=== PATIENT | male | born 1955 | race Caucasian/White ===

== ENCOUNTER → 2024-06-05 | Outpatient (CLI) | payer OTHER, SELFPAY ==
--- NOTE | 2024-06-05 14:20 | XR_ITS ---
Examination: Bone densitometry Date and time of exam:June 05, 2024 1430 hours INDICATIONS: 69-year-old male with diagnosis age related osteoporosis Technique: Lumbar spine and hip total bone mineralization values of an calculated. Peak reference and age match control results have been displayed. Findings: Lumbar spine total bone mineralization is1.435 gm/cm2. This is 3.1 standard deviations above peak reference. This is 3.9 standard deviations above age-matched controls. Hip total bone mineralization is 0.987 gm/cm2 This is 0.3 standard deviations below peak reference. This is 0.3 standard deviations above age-matched controls Impression: There is normal mineralization based on lumbar spine measurements. There is osteopenia based on hip measurements
== END | disposition home or self-care (01) ==
LOC: CDIM 14:12
PROVIDERS: PCP Family Medicine; Referring Provider Family Medicine; Visit Provider Family Medicine
DX: M85.80 Other specified disorders of bone density and structure, unspecified site (principal)
CPT/HCPCS: 77080

== ENCOUNTER → 2024-09-29 | Outpatient (CLI) | payer OTHER, SELFPAY ==
[2024-09-29 11:43] LABS: Collection Type, Urine Clean Catch
[2024-09-29 12:18] LABS: Basophils % (Auto) 1 % (0-2.5); Eosinophils # (Auto) 0.2 Thou/mm3 (0.0-0.5); Eosinophils % (Auto) 3 % (0-10); Hematocrit 36.5 % (41.0-53.0); Hemoglobin 12.1 g/dL (13.5-16.0); Immature Granulocytes % (Auto) 0 % (0-0); Immature Granulocytes Auto 0.01 Thou/mm3 (0.00-0.00); Lymphocytes # (Auto) 1.2 Thou/mm3 (1.0-4.8); Lymphocytes % (Auto) 26 % (10-50); Mean Corpuscular HGB Conc 33.2 g/dl (31.0-37.0); Mean Corpuscular Hemoglobin 28.1 pg (25.0-35.0); Mean Corpuscular Volume 85 fL (80-100); Monocytes # (Auto) 0.5 Thou/mm3 (0.0-0.8); Monocytes % (Auto) 12 % (0-12); Neutrophils # (Auto) 2.6 Thou/mm3 (1.8-7.7); Neutrophils % (Auto) 58 % (37-80); Nucleated Red Blood Cell % 0 /100 WBC (0); Platelet Count 193 Thou/mm3 (140-440); RDW Standard Deviation 45.8 fL (35.1-43.9); White Blood Count 4.5 Thou/mm3 (3.8-10.6)
[2024-09-29 12:22] LABS: Cardiac Risk Estimate 2.1 RATIO (4.0-6.7); Cholesterol 179 mg/dL (132-200); HDL Cholesterol 85 mg/dL (40-60); LDL Cholesterol,Calculated 72 mg/dL (0-130); Thyroid Stimulating Hormone 1.96 uIU/mL (0.55-4.78); Triglycerides 109 mg/dL (30-150); Uric Acid 6.6 mg/dL (3.7-9.2)
[2024-09-29 12:35] LABS: Bilirubin,Urine Negative (Negative); Blood,Urine Negative (Negative); Clarity,Urine Clear (Clear/Hazy); Color,Urine Lt-Yellow (Lt Yel-Yel); Glucose, Urine Negative (Negative); Ketones,Urine Negative (Negative); Leukocyte Esterase,Urine Positive (Negative); Nitrite,Urine Negative (Negative); PH,Urine 5.5 (5.0-7.0); Protein,Urine Negative (Neg - Trace); RBC,Urine 1 /hpf (0-3); Specific Gravity,Urine 1.017 (1.001-1.035); Squamous Epithelial Cell,Urine 1 /hpf (0-5); Urobilinogen,Urine Negative mg/dL (0.0-1.0); WBC,Urine 3 /hpf (0-5)
[2024-09-29 12:38] LABS: Sperm,Urine Present
[2024-09-29 12:49] LABS: Glucose Estimated Average 114 mg/dL (80-131); Hemoglobin A1C 5.6 % Hgb (4.8-6.0)
== END | disposition home or self-care (01) ==
PROVIDERS: PCP Family Medicine; Referring Provider Family Medicine; Visit Provider Family Medicine
DX: E66.9 Obesity, unspecified (principal); Z68.35 Body mass index [BMI] 35.0-35.9, adult
CPT/HCPCS: 36415; 80061; 81001; 83036; 84443; 84550; 85025

== ENCOUNTER 2025-02-23 22:04 | Emergency (ER) | payer OTHER, SELFPAY ==
[2025-02-23 22:13] VITALS: BP 143/75; PULSE 65; RESP 18; TEMP 36.5; O2SAT 97
--- NOTE | 2025-02-23 22:56 | XR_ITS ---
Examination: Thoracic spine 3 views TECHNIQUE: AP lateral, lateral operative cervical spine 3 views Date and time: 18/11/2024 11:21 PM INDICATIONS: Back pain today. FINDINGS: Kyphosis dorsal spine secondary to chronic wedging of a lower thoracic vertebral body which appears to be T12 No acute fracture Jrya-[id number] diffuse thoracic degenerative disc disease IMPRESSION: Severe kyphosis thoracolumbar spine
--- NOTE | 2025-02-23 22:56 | XR_ITS ---
Examination: PA chest single view TECHNIQUE: Upright PA chest single view Date and time: February 23, 2025 at 11:25 PM, comparison September 23, 2020 INDICATIONS: Chest pain and shortness of breath today. FINDINGS: Early left perihilar left basilar pneumonia. Normal heart size Osseous structures are intact IMPRESSION: Early left perihilar left basilar pneumonia
--- NOTE | 2025-02-23 22:58 | PD.EDRME ---
Rapid Medical Screening Exam RME Arrival date/time: 02/23/25 22:04 This is a case of 69-year-old male who came in in the emergency room due to chest pain shortness of breath and back pain today worsening of the symptoms this patient decided to sought consult here in the emergency room no palpitation Chief Complaint: Chest Pain Time Seen by Provider: 02/23/25 22:54 Vital signs: Vital Signs Temperature 97.7 F 02/23/25 22:13 Pulse Rate 65 02/23/25 22:13 Respiratory Rate 18 02/23/25 22:13 Blood Pressure 143/75 H 02/23/25 22:13 Pulse Oximetry (%) 97 02/23/25 22:13 Oxygen Delivery Method Room Air 02/23/25 22:13
[2025-02-23 23:34] LABS: Basophils # (Auto) 0.0 Thou/mm3 (0.0-0.2); Basophils % (Auto) 0 % (0-2.5); Eosinophils # (Auto) 0.0 Thou/mm3 (0.0-0.5); Eosinophils % (Auto) 0 % (0-10); Hematocrit 36.2 % (41.0-53.0); Hemoglobin 12.1 g/dL (13.5-16.0); Immature Granulocytes Auto 0.02 Thou/mm3 (0.00-0.00); Lymphocytes # (Auto) 0.3 Thou/mm3 (1.0-4.8); Lymphocytes % (Auto) 4 % (10-50); Mean Corpuscular HGB Conc 33.4 g/dl (31.0-37.0); Mean Corpuscular Hemoglobin 28.5 pg (25.0-35.0); Mean Corpuscular Volume 85 fL (80-100); Monocytes # (Auto) 0.2 Thou/mm3 (0.0-0.8); Monocytes % (Auto) 3 % (0-12); Neutrophils # (Auto) 7.7 Thou/mm3 (1.8-7.7); Neutrophils % (Auto) 93 % (37-80); Nucleated Red Blood Cell # 0.00 Thou/mm3 (0.00-0.00); Nucleated Red Blood Cell % 0 /100 WBC (0); Platelet Count 213 Thou/mm3 (140-440); RDW Standard Deviation 46.5 fL (35.1-43.9); Red Blood Count 4.25 Miln/mm3 (4.50-5.90); White Blood Count 8.3 Thou/mm3 (3.8-10.6)
[2025-02-23 23:50] LABS: B-Type Natriuretic Peptide 146 pg/mL (0-100)
[2025-02-23 23:54] LABS: Alanine Aminotransferase 148 U/L (10-49); Albumin, Serum 4.3 gm/dL (3.4-4.8); Albumin/Globulin Ratio 2.0 (1.2-2.2); Alkaline Phosphatase 618 U/L (46-116); Anion Gap 17 (7-16); Aspartate Amino Transferase 225 U/L (0-34); BUN/Creatinine Ratio 11 Ratio (12-20); Bilirubin,Total 3.1 mg/dL (0.3-1.2); Blood Urea Nitrogen 18 mg/dL (9-23); Calcium 9.4 mg/dL (8.3-10.6); Calcium (Corrected) 9.4 mg/dL (8.5-10.1); Carbon Dioxide 19.3 mMol/L (20.0-31.0); Chloride 104 mMol/L (98-107); Creatinine (Component) 1.6 mg/dL (0.6-1.3); Globulin 2.2 gm/dL (2.3-3.5); Glucose 149 mg/dL (74-106); Osmolality,Calculated 284 (275-295); Potassium 3.8 mMol/L (3.4-5.1); Sodium 140 mMol/L (136-145); Total Protein 6.5 gm/dL (5.7-8.2); Troponin I < 0.020 ng/mL (0.0-0.045); eGFR 47 See Note
[2025-02-24 00:46] VITALS: BP 127/75; PULSE 89; RESP 18; TEMP 36.8; O2SAT 96
== END 2025-02-24 02:41 | disposition left against medical advice (07) ==
PROVIDERS: Nurse Practitioner Family; Emergency Provider Emergency Medicine; PCP Family Medicine
DX: R07.9 Chest pain, unspecified (principal); R06.02 Shortness of breath; M54.9 Dorsalgia, unspecified; Z53.29 Procedure and treatment not carried out because of patient's decision for other reasons
CPT/HCPCS: 36415; 71045; 72072; 80053; 83880; 84484; 85025; 87400; 87811; 93005; 99284

== ENCOUNTER → 2025-02-25 | Outpatient (CLI) | payer OTHER, SELFPAY ==
[2025-02-25 10:01] LABS: Glucose Estimated Average 108 mg/dL (80-131); Hemoglobin A1C 5.4 % Hgb (4.8-6.0)
== END | disposition home or self-care (01) ==
LOC: COPL 08:28
PROVIDERS: PCP Family Medicine; Referring Provider Family Medicine; Visit Provider Family Medicine
DX: M54.9 Dorsalgia, unspecified (principal)
CPT/HCPCS: 36415; 83036

== ENCOUNTER → 2025-06-22 | Outpatient (CLI) | payer OTHER, SELFPAY ==
--- NOTE | 2025-06-22 11:51 | EKG_ITS ---
[facility] Test Date: 2025-06-22 Pat Name: CODEY RABAGO Department: Room: - Gender: Male Claims Analyst: EDMUND : 1955 Requested By: Janusz Fong Order Number: [id number] Reading MD: Janusz Fong Measurements Intervals [place] Rate: 63 P: 15 [place]: 174 QRS: -32 QRSD: 97 T: 30 QT: 423 QTc: 434 Interpretive Statements SINUS RHYTHM MARKED LEFT AXIS DEVIATION [QRS AXIS < -30] Compared to ECG 08/23/2022 15:36:36 No significant changes /[id number]
[2025-06-22 12:06] LABS: Collection Type, Urine Clean Catch
[2025-06-22 12:07] LABS: Basophils # (Auto) 0.0 Thou/mm3 (0.0-0.2); Basophils % (Auto) 1 % (0-2.5); Eosinophils # (Auto) 0.2 Thou/mm3 (0.0-0.5); Eosinophils % (Auto) 3 % (0-10); Hematocrit 36.8 % (41.0-53.0); Hemoglobin 12.1 g/dL (13.5-16.0); Immature Granulocytes Auto 0.01 Thou/mm3 (0.00-0.00); Lymphocytes # (Auto) 1.3 Thou/mm3 (1.0-4.8); Lymphocytes % (Auto) 27 % (10-50); Mean Corpuscular HGB Conc 32.9 g/dl (31.0-37.0); Mean Corpuscular Hemoglobin 27.4 pg (25.0-35.0); Mean Corpuscular Volume 83 fL (80-100); Monocytes # (Auto) 0.5 Thou/mm3 (0.0-0.8); Monocytes % (Auto) 11 % (0-12); Neutrophils # (Auto) 2.8 Thou/mm3 (1.8-7.7); Neutrophils % (Auto) 58 % (37-80); Nucleated Red Blood Cell # 0.00 Thou/mm3 (0.00-0.00); Nucleated Red Blood Cell % 0 /100 WBC (0); Platelet Count 227 Thou/mm3 (140-440); RDW Standard Deviation 41.3 fL (35.1-43.9); Red Blood Count 4.41 Miln/mm3 (4.50-5.90); White Blood Count 4.8 Thou/mm3 (3.8-10.6)
[2025-06-22 12:24] LABS: INR 1.0 (0.9-1.3); Partial Thromboplastin Time 24.2 Seconds (22.0-36.0); Prothrombin Time 10.8 Seconds (9.0-12.2)
[2025-06-22 12:29] LABS: Glucose Estimated Average 120 mg/dL (80-131); Hemoglobin A1C 5.8 % Hgb (4.8-6.0)
[2025-06-22 12:33] LABS: Ferritin 7 ng/mL (10.5-307.3); Iron 66 mcg/dL (65-175); Percent Iron Saturation 17 % (20-55); Total Iron Binding Capacity 369 mcg/dL (250-425); Unsaturated Iron Binding 303 (225-295)
[2025-06-22 12:35] LABS: Alanine Aminotransferase 14 U/L (10-49); Albumin, Serum 4.5 gm/dL (3.4-4.8); Albumin/Globulin Ratio 2.1 (1.2-2.2); Alkaline Phosphatase 128 U/L (46-116); Anion Gap 10 (7-16); Aspartate Amino Transferase 20 U/L (0-34); BUN/Creatinine Ratio 16 Ratio (12-20); Bilirubin,Total 0.5 mg/dL (0.3-1.2); Blood Urea Nitrogen 16 mg/dL (9-23); Calcium 8.9 mg/dL (8.3-10.6); Calcium (Corrected) 8.9 mg/dL (8.5-10.1); Carbon Dioxide 25.5 mMol/L (20.0-31.0); Cardiac Risk Estimate 2.0 RATIO (4.0-6.7); Chloride 109 mMol/L (98-107); Cholesterol 189 mg/dL (132-200); Creatinine (Component) 1.0 mg/dL (0.6-1.3); Globulin 2.1 gm/dL (2.3-3.5); Glucose 122 mg/dL (74-106); HDL Cholesterol 94 mg/dL (40-60); LDL Cholesterol,Calculated 73 mg/dL (0-130); Osmolality,Calculated 289 (275-295); Potassium 4.1 mMol/L (3.4-5.1); Sodium 144 mMol/L (136-145); Thyroid Stimulating Hormone 2.03 uIU/mL (0.55-4.78); Total Protein 6.6 gm/dL (5.7-8.2); Triglycerides 109 mg/dL (30-150); eGFR > 60 See Note
[2025-06-22 12:39] LABS: Folate > 24.00 ng/mL (>5.38); Vitamin B12 373 pg/mL (211-911)
[2025-06-22 13:26] LABS: Bilirubin,Urine Negative (Negative); Blood,Urine Negative (Negative); Clarity,Urine Clear (Clear/Hazy); Color,Urine Lt-Yellow (Lt Yel-Yel); Glucose, Urine Negative (Negative); Hyaline Casts,Urine < 1 /hpf (0-1); Ketones,Urine Negative (Negative); Leukocyte Esterase,Urine Negative (Negative); Nitrite,Urine Negative (Negative); PH,Urine 6.0 (5.0-7.0); Protein,Urine Trace (Neg - Trace); RBC,Urine 2 /hpf (0-3); Specific Gravity,Urine 1.022 (1.001-1.035); Squamous Epithelial Cell,Urine 2 /hpf (0-5); Urobilinogen,Urine Negative mg/dL (0.0-1.0); WBC,Urine 2 /hpf (0-5)
[2025-06-29 07:06] LABS: Vitamin D,1,25 (OH)2,Total 30 pg/mL (18-72); Vitamin D2, 1,25 (OH)2 <8 pg/mL; Vitamin D3, 1,25 (OH)2 30 pg/mL
[2025-06-29 07:09] LABS: Vitamin B6, Plasma* 11.7 ng/mL (2.1-21.7)
[2025-06-29 07:12] LABS: Vitamin B1 (Thiamine)* 12 nmol/L (8-30)
== END | disposition home or self-care (01) ==
PROVIDERS: PCP Family Medicine; Referring Provider Surgery; Visit Provider Family Medicine
DX: Z01.812 Encounter for preprocedural laboratory examination (principal); Z00.00 Encounter for general adult medical examination without abnormal findings; C69.31 Malignant neoplasm of right choroid; E66.812 Obesity, class 2; D50.0 Iron deficiency anemia secondary to blood loss (chronic); Z90.49 Acquired absence of other specified parts of digestive tract; E66.01 Morbid (severe) obesity due to excess calories; E46 Unspecified protein-calorie malnutrition; K91.2 Postsurgical malabsorption, not elsewhere classified; Z90.3 Acquired absence of stomach [part of]; E55.9 Vitamin D deficiency, unspecified; Z98.890 Other specified postprocedural states; R53.81 Other malaise; R53.83 Other fatigue; E56.9 Vitamin deficiency, unspecified
CPT/HCPCS: 36415; 80053; 80061; 81001; 82607; 82652; 82728; 82746; 83036; 83540; 83550; 84207; 84425; 84443; 85025; 85610; 85730; 93005